=== PATIENT | male | born 1980 | race Caucasian/White ===

== ENCOUNTER 2017-03-03 09:41 | Emergency (ER) | payer OTHER ==
[2017-03-03 09:48] VITALS: RESP 18
--- NOTE | 2017-03-03 10:51 | ED ---
General Adult HPI - General Chief complaint: Dental/Oral Stated complaint: Dental Pain Time Seen by Provider: 03/03/17 10:20 Source: patient, RN notes reviewed Mode of arrival: ambulatory Limitations: no limitations - History of Present Illness Initial comments: Chief complaint history of present illness is a 36-year-old male with a complaint of dental infection. The patient reports these had very poor dentition with multiple fractured teeth and dental problems for many years. Sunday he is trying to see a dentist. The past several days developed swelling to the right side of his face. Denies significant pain. No fever. Denies ALLERGIES. - Related Data Previous Rx's Medication Instructions Recorded Amoxicillin/Potassium Clav 1 each PO Q12HR #20 tab 03/03/17 [Augmentin 875-125 Tablet] Hydrocodone/Acetaminophen [O'Brien 1 each PO Q6HR PRN #10 tab 03/03/17 5-325] Ibuprofen [Motrin] 600 mg PO Q6HR PRN #20 tab 03/03/17 Allergies Allergy/AdvReac Type Severity Reaction Status Date / Time No Known Allergies Allergy Verified 03/03/17 09:48 Review of Systems ROS Statement: Those systems with pertinent positive or pertinent negative responses have been documented in the HPI. Review of systems no headache no visual acuity changes he has discomfort to the right side of his jaw was able to open and close. No neck pain no chest pain shortness breath GI/ problems denies any neuro deficits. All systems are reviewed. Past medical problems none. Denies any surgeries. Family history no cancers. Patient denies any ALLERGIES. He does smoke strongly encouraged to stop he does drink alcohol. ROS Other: All systems not noted in ROS Statement are negative. Past Medical History Past Medical History: No Reported History History of Any Multi-Drug Resistant Organisms: None Reported Past Surgical History: No Surgical Hx Reported Past Psychological History: No Psychological Hx Reported Smoking Status: Current every day smoker Past Alcohol Use History: Occasional Past Drug Use History: None Reported General Exam - General Exam Comments Initial Comments: General: The patient is awake and alert, he because of swelling to his right jaw and cheek. Ongoing freeze reports 1 day. Chronically poor dentition. Vital signs temperature 98.1 pulse 100 respiratory rate 18 pulse ox 95% on room air. Blood pressure 157/72 Eye: Pupils are equal, t, extra-ocular movements are intact; there is normal conjunctiva bilaterally. No signs of icterus. Ears, nose, mouth and throat: Swollen right side of his face including his lip. Denies taking any medications that may have caused angioedema or ALLERGIC reaction. Does have very poor dentition with multiple fractured teeth down the gumline. He states he be seen a dentist or trying to get into one on Sunday. Neck: Neck is supple no significant lymphadenopathy.. Cardiovascular: There is a regular rate and rhythm. No murmur, rub or gallop is appreciated. Respiratory: Lungs are clear to auscultation, respirations are non-labored, breath sounds are equal. No wheezes, stridor, rales, or rhonchi. Gastrointestinal: Abdomen nontender to palpation no complaints of nausea vomiting or diarrhea. No complaint of any neuro deficits. Limitations: no limitations Course Vital Signs 03/03/17 09:43 Temperature 98.1 F Pulse Rate 100 Respiratory 18 Rate Blood Pressure 157/72 O2 Sat by Pulse 95 Oximetry Medical Decision Making - Medical Decision Making Medical decision-making. The patient strongly advised follow-up with dentist as soon as possible. We placed on antibiotics and not showing improvement in the next 24-48 hours to return emergency room if unable to see a dentist or family physician. He'll be placed on antibiotics and analgesics. Disposition Clinical Impression: Dental abscess, Dental caries Disposition: HOME SELF-CARE Condition: Fair Instructions: Dental Abscess (ED), Dental Caries (ED), Toothache (ED) Additional Instructions: Call follow up with a family physician or dentist as soon as possible for follow -up or return emergency room if not improving over the next 24-48 hours. You may need to be hospitalized with IV antibiotics. Take medications as directed Prescriptions: Amoxicillin/Potassium Clav [Augmentin 875-125 Tablet] 1 each PO Q12HR #20 tab Hydrocodone/Acetaminophen [O'Brien 5-325] 1 each PO Q6HR PRN #10 tab PRN Reason: Pain Ibuprofen [Motrin] 600 mg PO Q6HR PRN #20 tab PRN Reason: Pain Referrals: None,Stated [Primary Care Provider] - 1-2 days Time of Disposition: 10:51
[2017-03-03 11:17] VITALS: BP 142/70; PULSE 96; TEMP 98.3
== END 2017-03-03 11:17 | disposition home or self-care (01) ==
LOC: EC 09:41
DX: K04.7 Periapical abscess without sinus (principal); K02.9 Dental caries, unspecified; F17.200 Nicotine dependence, unspecified, uncomplicated
CPT/HCPCS: 99282

== ENCOUNTER 2017-09-29 09:47 | Emergency (ER) | payer OTHER ==
--- NOTE | 2017-09-29 11:52 | ED ---
Overdose HPI - General Chief Complaint: Overdose Stated Complaint: Overdose Time Seen by Provider: 09/29/17 10:05 Source: patient, EMS Mode of arrival: EMS Limitations: no limitations - History of Present Illness Initial Comments: 37-year-old male presented for evaluation of accidental heroin overdose. He states that a friend of his recently came into a lot of money and had bought some heroin. He used a week ago last night and then today but states prior to that he hadn't used for the last 6 months. He states that he was only trying to have a good time and that this was not an intentional or deliberate attempt on his life. He was at his ex-girlfriend's house when he used and she was the one who called EMS. MS provided 2 mg of Narcan IM with improvement in symptoms. Patient states that since having the Narcan he has a runny nose and is feeling congested however is feeling well. States he's had Narcan in the past and has had congestion and rhinorrhea however has had no other complications. - Related Data Home Medications Medication Instructions Recorded Confirmed No Known Home Medications [No 09/29/17 09/29/17 Known Home Medications] Allergies Allergy/AdvReac Type Severity Reaction Status Date / Time No Known Allergies Allergy Verified 09/29/17 09:49 Review of Systems ROS Statement: Those systems with pertinent positive or pertinent negative responses have been documented in the HPI. ROS Other: All systems not noted in ROS Statement are negative. Constitutional: Denies: fever, chills Eyes: Denies: eye pain, eye discharge, vision change ENT: Reports: congestion. Denies: ear pain, throat pain Respiratory: Denies: cough, dyspnea Cardiovascular: Denies: chest pain, palpitations Endocrine: Denies: fatigue, polydipsia Gastrointestinal: Denies: abdominal pain, nausea, vomiting Genitourinary: Denies: urgency, dysuria Musculoskeletal: Denies: back pain, arthralgia, myalgia Skin: Denies: rash, lesions Neurological: Denies: headache, weakness Psychiatric: Denies: anxiety, depression Hematological/Lymphatic: Denies: easy bleeding, easy bruising Past Medical History Past Medical History: No Reported History History of Any Multi-Drug Resistant Organisms: None Reported Past Surgical History: No Surgical Hx Reported Past Psychological History: No Psychological Hx Reported Smoking Status: Current every day smoker Past Alcohol Use History: Occasional Past Drug Use History: Heroin General Exam Limitations: no limitations General appearance: alert, in no apparent distress Head exam: Present: atraumatic, normocephalic Eye exam: Present: normal appearance, PERRL, EOMI ENT exam: Present: normal oropharynx, mucous membranes moist, other (sounds congested/rhinorrhea). Absent: normal exam, mucous membranes dry Neck exam: Present: normal inspection. Absent: tenderness Respiratory exam: Present: normal lung sounds bilaterally. Absent: respiratory distress, wheezes, rales, rhonchi, stridor, chest wall tenderness Cardiovascular Exam: Present: regular rate, normal rhythm GI/Abdominal exam: Present: soft. Absent: distended, tenderness, guarding, rebound, rigid Rectal exam: Present: deferred Extremities exam: Present: normal inspection, full ROM Back exam: Present: normal inspection, full ROM Neurological exam: Present: alert, oriented X3 Psychiatric exam: Present: normal affect, normal mood. Absent: depressed, agitated Skin exam: Present: warm, dry, intact Course Vital Signs 09/29/17 09/29/17 09/29/17 09:49 12:15 12:53 Temperature 98.4 F 98.3 F 98.2 F Pulse Rate 69 61 66 Respiratory 16 18 16 Rate Blood Pressure 130/81 118/69 120/68 O2 Sat by Pulse 94 L 95 99 Oximetry Medical Decision Making - Medical Decision Making 37-year-old male presenting via EMS for accidental heroin overdose. Received 2 mg Narcan IM with improvement in mental status exam side effect of rhinorrhea and congestion. On physical examination the patient appears be in no apparent distress vital signs are stable. Lungs are clear to auscultation bilaterally and the patient has rhinorrhea and congestion however remainder physical exam is benign. Given that the patient has normal oxygen saturation and is in no respiratory distress. We'll observe in the ED. Patient observed and had no complications and consistent improvement in state. At this time the patient is stable for discharge home. He was instructed and educated on the abuse of heroin and advised to seek counseling and assistance in stopping. Further advised to return to this facility if symptoms should worsen or persist. The patient acknowledged an understanding of all information provided and agreed with this plan of care. Disposition Clinical Impression: Accidental heroin overdose, Overdose of nonsteroidal anti-inflammatory drug ( NSAID) Disposition: HOME SELF-CARE Condition: Stable Instructions: Narcotic Abuse (ED) Is patient prescribed a controlled substance at d/c from ED?: No Referrals: Leticia Sylvester MD [STAFF PHYSICIAN] - 1-2 days Time of Disposition: 12:31
[2017-09-29 12:55] VITALS: BP 120/68; PULSE 66; RESP 16; TEMP 98.2
== END 2017-09-29 12:53 | disposition home or self-care (01) ==
LOC: EC 09:47
DX: T40.1X1A Poisoning by heroin, accidental (unintentional), initial encounter (principal); T39.391A Poisoning by other nonsteroidal anti-inflammatory drugs [NSAID], accidental (unintentional), initial encounter; F17.200 Nicotine dependence, unspecified, uncomplicated; Y92.002 Bathroom of unspecified non-institutional (private) residence as the place of occurrence of the external cause
CPT/HCPCS: 99284

== ENCOUNTER 2017-10-12 20:56 | Observation (INO) | payer OTHER ==
[2017-10-12] MEDS ORDERED: IPRATROPIUM-ALBUTEROL 3 ML NEB INHALATION STA (21:28)
[2017-10-12] MEDS ORDERED: methylPREDNISolone SOD SUCCI 125 MG/2 ML VIAL IV STA (21:29)
[2017-10-12] MEDS ORDERED: DEXAMETHASONE SOD PHOSPHATE 10 MG/ML 1 ML VIAL IV STA (21:31)
[2017-10-12] MEDS ORDERED: SODIUM CHLORIDE 0.9% 1,000 ML IV STA (21:32)
--- NOTE | 2017-10-12 21:51 | ED ---
General Adult HPI - General Source: patient, RN notes reviewed Mode of arrival: ambulatory Limitations: no limitations <Xavier Davila - Last Filed: 10/12/17 22:46> <Walt Dunlap - Last Filed: 10/13/17 00:19> - General Chief complaint: Dental/Oral Stated complaint: Dental Infection Time Seen by Provider: 10/12/17 21:11 - History of Present Illness Initial comments: Patient is 37-year-old male presented to the emergency room today with chief complaint of dental pain. Patient states that his noticed some swelling to the right side of his face. He does admit that he has poor dental hygiene. He states that he's having some dental pain to the right lower aspect. Patient states she's had swelling in the past with a dental abscess and believes this may be the same. Patient states is currently not on any antibiotics. He states swelling greatly increased from last night or this morning. He states he has not taken any different medications. Patient does admit to being a daily smoker. He denies any increased shortness of breath. Patient denies any other complaints or symptoms at this time. Patient denies any recent fever, chills, shortness of breath, chest pain, back pain, abdominal pain, nausea or vomiting, numbness or tingling, headaches or visual changes, or any other complaints. (Xavier Davila) - Related Data Home Medications Medication Instructions Recorded Confirmed Ibuprofen [Motrin Ib] 400 mg PO QID PRN 10/12/17 10/12/17 Allergies Allergy/AdvReac Type Severity Reaction Status Date / Time No Known Allergies Allergy Verified 10/12/17 21:20 Review of Systems ROS Other: All systems not noted in ROS Statement are negative. <Xavier Davila - Last Filed: 10/12/17 22:46> ROS Other: All systems not noted in ROS Statement are negative. <Walt Dunlap - Last Filed: 10/13/17 00:19> ROS Statement: Those systems with pertinent positive or pertinent negative responses have been documented in the HPI. Past Medical History Past Medical History: No Reported History History of Any Multi-Drug Resistant Organisms: None Reported Past Surgical History: No Surgical Hx Reported Past Psychological History: No Psychological Hx Reported Smoking Status: Current every day smoker Past Alcohol Use History: Occasional Past Drug Use History: None Reported <Xavier Davila - Last Filed: 10/12/17 22:46> General Exam Limitations: no limitations <Xavier Davila - Last Filed: 10/12/17 22:46> <Walt Dunlap - Last Filed: 10/13/17 00:19> - General Exam Comments Initial Comments: General: The patient is awake and alert, in no distress, and does not appear acutely ill. Eye: Pupils are equal, round and reactive to light, extra-ocular movements are intact. No nystagmus. There is normal conjunctiva bilaterally. No signs of icterus. Ears, nose, mouth and throat: There are moist mucous membranes and no oral lesions. Moderate swelling to the right side of the face above the jaw line. Patient has poor dental hygiene with multiple caries. Patient does have tenderness of the right side lower jaw on palpation to the gumline. There is no abscesses in this area. Patient does have some moderate swelling to the right side mild tenderness. Fluctuant area. Uvula midline. Patient swallows without any difficulty. Neck: The neck is supple, there is no tenderness or JVD. Cardiovascular: There is a regular rate and rhythm. No murmur, rub or gallop is appreciated. Respiratory: Lungs are clear to auscultation, respirations are non-labored, breath sounds are equal. No wheezes, stridor, rales, or rhonchi. Musculoskeletal: Normal ROM, no tenderness. Strength 5/5. Sensation intact. Neurological: A&O x 3. CN II-XII intact, There are no obvious motor or sensory deficits. Coordination appears grossly intact. Speech is normal. Skin: Skin is warm and dry and no rashes or lesions are noted. Psychiatric: Cooperative, appropriate mood & affect, normal judgment. (Xavier Davila) Vital Signs 10/12/17 10/12/17 10/12/17 20:58 21:40 21:45 Temperature 97.7 F Pulse Rate 59 L 60 64 Respiratory 20 Rate Blood Pressure 132/77 O2 Sat by Pulse 95 Oximetry 10/12/17 23:08 Temperature Pulse Rate 50 L Respiratory 18 Rate Blood Pressure 123/67 O2 Sat by Pulse 96 Oximetry Medical Decision Making - Lab Data Result diagrams: 10/12/17 21:30 10/12/17 21:30 <Xavier Davila - Last Filed: 10/12/17 22:46> - Lab Data Result diagrams: 10/12/17 21:30 10/12/17 21:30 <Walt Dunlap - Last Filed: 10/13/17 00:19> - Medical Decision Making 37-year-old male with significant facial swelling, likely cellulitis and dental abscess. Patient does have a normal white blood cell count, however his CRP is elevated consistent with infectious process. CT is obtained given significant swelling and concern for deep space infection. This does show swelling of the soft tissue anterior to the mandible and maxilla. No deep space infection, there is no trismus. No tongue swelling or posterior oropharyngeal swelling on exam. Patient is started on IV antibiotics. Due to the significant swelling he will be placed in observation for IV antibiotics and IV steroids. Case discussed with Dr. Swanson,who will accept admission. (Walt Dunlap) - Lab Data Lab Results 10/12/17 10/12/17 Range/Units 21:30 21:30 WBC 5.7 (3.8-10.6) k/uL RBC 5.17 (4.30-5.90) m/uL Hgb 15.7 (13.0-17.5) gm/dL Hct 46.1 (39.0-53.0) % MCV 89.3 (80.0-100.0) fL MCH 30.4 (25.0-35.0) pg MCHC 34.1 (31.0-37.0) g/dL RDW 12.7 (11.5-15.5) % Plt Count 179 (150-450) k/uL Neutrophils % 49 % Lymphocytes % 35 % Monocytes % 6 % Eosinophils % 7 % Basophils % 0 % Neutrophils # 2.8 (1.3-7.7) k/uL Lymphocytes # 2.0 (1.0-4.8) k/uL Monocytes # 0.4 (0-1.0) k/uL Eosinophils # 0.4 (0-0.7) k/uL Basophils # 0.0 (0-0.2) k/uL Sodium 139 (137-145) mmol/L Potassium 4.8 (3.5-5.1) mmol/L Chloride 104 (98-107) mmol/L Carbon Dioxide 24 (22-30) mmol/L Anion Gap 11 mmol/L BUN 19 (9-20) mg/dL Creatinine 0.90 (0.66-1.25) mg/dL Est GFR (CKD-EPI)AfAm >90 (>60 ml/min/1.73 sqM) Est GFR (CKD-EPI)NonAf >90 (>60 ml/min/1.73 sqM) Glucose 95 (74-99) mg/dL Calcium 9.2 (8.4-10.2) mg/dL Total Bilirubin 1.1 (0.2-1.3) mg/dL AST 115 H (17-59) U/L ALT 121 H (21-72) U/L Alkaline Phosphatase 47 (38-126) U/L C-Reactive Protein 26.2 H (<10.0) mg/L Total Protein 7.2 (6.3-8.2) g/dL Albumin 4.0 (3.5-5.0) g/dL Disposition <Xavier Davila - Last Filed: 10/12/17 22:46> Is patient prescribed a controlled substance at d/c from ED?: No Decision to Admit Reason: Admit from EC Decision Date: 10/13/17 Decision Time: 00:19 <Walt Dunlap - Last Filed: 10/13/17 00:19> Clinical Impression: Dental abscess, Facial cellulitis Disposition: ADMITTED IP TO THIS [facility] Condition: Stable Referrals: None,Stated [Primary Care Provider] - 1-2 days
[2017-10-12 22:15] LABS: Basophils % (A) 0 %; Eosinophils # (A) 0.4 k/uL (0-0.7); Eosinophils % (A) 7 %; HCT 46.1 % (39.0-53.0); HGB 15.7 gm/dL (13.0-17.5); Lymphocytes % (A) 35 %; MCH 30.4 pg (25.0-35.0); MCHC 34.1 g/dL (31.0-37.0); MCV 89.3 fL (80.0-100.0); Mean Platelet Volume 7.2; Monocytes # (A) 0.4 k/uL (0-1.0); Monocytes % (A) 6 %; Neutrophils # (A) 2.8 k/uL (1.3-7.7); Neutrophils % (A) 49 %; Platelet Count 179 k/uL (150-450); RBC 5.17 m/uL (4.30-5.90); RDW 12.7 % (11.5-15.5); WBC 5.7 k/uL (3.8-10.6)
--- NOTE | 2017-10-12 22:23 | CT ---
EXAMINATION TYPE: CT soft tissue neck w con DATE OF EXAM: 10/12/2017 10:13 PM COMPARISON: NONE HISTORY: Swelling to mouth and lips. CT DLP: 427.9 mGycm Automated exposure control for dose reduction was used. CONTRAST: CT scan of the neck is performed following with IV Contrast, patient injected with 100 mL of Isovue 3 00. Axial images are obtained, coronal and sagittal reformatted images are reviewed. FINDINGS: There is normal ranching pattern of the great vessels on the aortic arch. Thyroid gland is symmetric. There is normal contrast opacification of carotid arteries and jugular veins. Vertebral arteries are unremarkable. Epiglottis appears normal. Subglottic trachea appears normal. Prevertebral soft tissue s are not enlarged. There is no evidence of pharyngeal mass. The tonsils appear within normal limits. There is subcutaneous edema anterior to the mandible and the maxilla. The submandibular salivary gla nds are symmetric. The parotid glands are symmetric. The tongue is prominent. There are anterior tria ngle cervical lymph nodes that measure up to 1 cm. IMPRESSION: Symmetric facial soft tissue swelling anterior to the mandible and maxilla. Minimal maxi llary sinusitis noted. Possible lingual edema.
[2017-10-12 22:32] LABS: ALT 121 U/L (21-72); AST 115 U/L (17-59); Alkaline Phosphatase 47 U/L (38-126); Anion Gap 11 mmol/L; Blood Urea Nitrogen 19 mg/dL (9-20); C Reactive Protein 26.2 mg/L (<10.0); Calcium 9.2 mg/dL (8.4-10.2); Carbon Dioxide 24 mmol/L (22-30); Chloride 104 mmol/L (98-107); Glucose 95 mg/dL (74-99); Potassium 4.8 mmol/L (3.5-5.1); Sodium 139 mmol/L (137-145); Total Bilirubin 1.1 mg/dL (0.2-1.3); Total Protein 7.2 g/dL (6.3-8.2)
[2017-10-12] MEDS ORDERED: diphenhydrAMINE 50 MG/ML 1 ML VIAL IVP STA (22:44)
[2017-10-12] MEDS ORDERED: FAMOTIDINE 20 MG/2 ML VIAL IV STA (22:45)
[2017-10-12] MEDS ORDERED: CLINDAMYCIN 600 MG in DEXTROSE 5% IN WATER 50 ML IVPB STA ×2 (22:45)
[2017-10-13] MEDS ORDERED: ACETAMINOPHEN TAB 325 MG TAB PO PRN (00:16)
[2017-10-13] MEDS ORDERED: NALOXONE 0.4 MG/ML 1 ML VIAL IV PRN (00:16)
[2017-10-13] MEDS ORDERED: KETOROLAC 30 MG/ML 1 ML VIAL IVP PRN (00:16)
[2017-10-13 01:41] VITALS: PULSE 44; RESP 16
[2017-10-13] MEDS: DEXAMETHASONE SOD PHOSPHATE 4 MG/ML 1 ML VIAL IV SCH ×2 (05:23→11:52)
--- NOTE | 2017-10-13 06:50 | P.HPIM ---
History of Present Illness H&P Date: 10/13/17 Chief Complaint: Facial swelling 37-year-old male with no significant past medical history presented to the hospital due to facial swelling. He reports that night he noticed some pain in his right lower molars and then next day in the morning on Sunday while at work he noticed facial swelling he reports that the pain is throbbing in his right lower jaw but denies any fevers or chills denies any nausea or vomiting. Continues to be able to open his mouth but kind of hurts. He denies any tongue swelling or changes in his voice. He denies any trouble breathing he is able to manage his own saliva and drink water liquids. However he was concerned regarding dental abscess as this happened before he recognizes that he has poor dental hygiene and decided to come to the hospital Sunday night for further care. CAT scan the soft tissue done in the ED showed swelling out to the mandible and maxilla with possible lingual edema. Patient admitted under observation to receive IV antibiotics and to monitor the progression of swelling Otherwise patient denies any fevers or chills denies any nausea vomiting denies any abdominal pain chest pain or trouble breathing he denies any changes in his bowel habits or urinary habits he denies any GI bleeding he denies any changes in his hearing or vision he denies any focal neurologic deficits Review of Systems Pertinent positives as noted in HPI. All other systems were reviewed and are negative Past Medical History Past Medical History: No Reported History History of Any Multi-Drug Resistant Organisms: None Reported Past Surgical History: No Surgical Hx Reported Past Anesthesia/Blood Transfusion Reactions: No Reported Reaction Smoking Status: Current every day smoker - Past Family History Mother Family Medical History: No Reported History Father Family Medical History: No Reported History Sister(s) Family Medical History: No Reported History Medications and Allergies Home Medications Medication Instructions Recorded Confirmed Type Ibuprofen [Motrin Ib] 400 mg PO QID PRN 10/12/17 10/13/17 History Allergies Allergy/AdvReac Type Severity Reaction Status Date / Time No Known Allergies Allergy Verified 10/13/17 01:16 Physical Exam Vitals: Vital Signs Temp Pulse Pulse Resp BP BP Pulse Ox 10/13/17 01:40 97.6 F 44 L 16 98/62 92 L 10/13/17 01:17 18 10/13/17 00:42 98.0 F 10/13/17 00:34 45 L 18 102/71 95 10/12/17 23:08 50 L 18 123/67 96 10/12/17 21:45 64 10/12/17 21:40 60 10/12/17 20:58 97.7 F 59 L 20 132/77 95 Intake and Output 10/12/17 10/12/17 10/13/17 14:59 22:59 06:59 Other: Voiding Method Toilet # Voids 1 Weight 104.326 kg Constitutional: No acute distress, conversant, pleasant Eyes: Anicteric sclerae, moist conjunctiva, no lid-lag Pupils equal round reactive to light ENMT: NC/AT Patient has noticeable swelling of his lower aspect of the face more on the right than the left of the lower jaw. With tenderness and discomfort to palpation, patient able to open his mouth but limited, tongue is midline uvula is midline no swelling of the soft palate or noticeable swelling of the pharynx. There is no drainage but there is very poor dental hygiene . Patient voice is not muffled patient is able to swallow and manages himself. Neck: Supple, FROM, no masses, or JVD No carotid bruits No thyromegaly Lungs: Clear to auscultation Clear to percussion Normal respiratory effort, no accessory muscle use Cardiovascular: Heart regular in rate and rhythm, No murmurs, gallops, or rubs No peripheral edema Abdominal: Soft Nontender, no guarding, rebound or rigidity Abdomen moving with respiration Normoactive bowel sounds No hepatomegaly, No splenomegaly No palpable mass No abdominal wall hernia noted Skin: Normal temperature, tone, texture, turgor No induration No subcutaneous nodules No rash, lesions No ulcers Extremities: No digital cyanosis No clubbing Pedal pulses intact and symmetrical Radial pulses intact and symmetrical No calf tenderness Psychiatric: Alert and oriented to person, place and time Appropriate affect fair judgment Neuro Muscles Strength 5/5 in all 4 extremities Sensation to light touch grossly present throughout Cranial nerves II-XII grossly intact No focal sensory deficits Lymphatics: Palpable lymph nodes right submental no palpable supraclavicular , or inguinal lymph nodes Results CBC & Chem 7: 10/12/17 21:30 10/12/17 21:30 Labs: Abnormal Lab Results - Last 24 Hours (Table) 10/12/17 Range/Units 21:30 AST 115 H (17-59) U/L ALT 121 H (21-72) U/L C-Reactive Protein 26.2 H (<10.0) mg/L Thrombosis Risk Factor Assmnt - Choose All That Apply Any of the Below Risk Factors Present?: No Other Risk Factors: No Other congenital or acquired thrombophilia - If yes, enter type in comment: No Thrombosis Risk Factor Assessment Level: Very Low Risk Assessment and Plan Assessment: 37-year-old male with no significant past medical history admitted under observation with expected length of stay less than 48 hours due to facial swelling from suspected right lower molar dental abscess. Patient will be monitored for progression of the swelling and for any compromise of his airways patient currently receiving IV antibiotics Plan: #Right facial swelling secondary to right lower molar dental abscess Patient started on IV antibiotics Pain control with NSAIDs Liquid diet as tolerated Patient to see a dentist as an outpatient Monitor for any airway compromise #Tobacco smoking Patient counseled to quit smoking Nicotine replacement therapy offered #DVT prophylaxis Patient is ambulatory low risk Surrogate decision-maker: Patient's mother Vanesa CODE STATUS: Full code Discussed with: Patient, ER, RN Anticipated discharge:< [address]: Home A total of 50 minutes was spent on the care of this complex patient more than 50% of the time was spent in counseling and care coordination.
[2017-10-13] MEDS ORDERED: CLINDAMYCIN 600 MG in DEXTROSE 5% IN WATER 50 ML IVPB SCH ×2 (08:00)
[2017-10-13 08:46] VITALS: BP 98/60; TEMP 97.5
[2017-10-13] MEDS ORDERED: NICOTINE 14MG/24HR PATCH TRANSDERM SCH (09:00)
--- NOTE | 2017-10-13 13:47 | P.DS ---
Providers Date of admission: 10/13/17 00:16 Expected date of discharge: 10/13/17 Attending physician: Sapna Swanson MD Primary care physician: Stated None Hospital Course: 37-year-old male with no significant past medical history presented to the hospital due to facial swelling. He reported that night he noticed some pain in his right lower molars and then next day in the morning on Sunday while at work he noticed facial swelling, he reported that the pain is throbbing in his right lower jaw but denies any fevers or chills, no nausea or vomiting. No chest pain or sob. Patient continued to be able to open his mouth but was having pain with that. He denied any tongue swelling or changes in his voice. He denied any trouble breathing. CAT scan the soft tissue done in the ED showed swelling out to the mandible and maxilla with possible lingual edema. Patient was admitted to receive IV antibiotics and to monitor the progression of swelling. Evaluation in the emergency department revealed normal vital signs, patient was started on clindamycin IV. The next morning when I saw him he was doing very well. Examination of the throat did not reveal any airway compromise. The swelling has gone down. He is able to swallow ok. No shortness of breath. Will be discharged home in stable condition on po clindamycin. Patient is aware that he needs to call a oral surgeon in order to have the infected tooth out. Discharge diagnoses Dental abscess Patient Condition at Discharge: Stable Plan - Discharge Summary Discharge Rx Participant: No New Discharge Prescriptions: New Acetaminophen Tab [Tylenol] 650 mg PO Q6HR PRN tab PRN Reason: Mild Pain Or Fever > 100.5 Clindamycin [Cleocin] 450 mg PO Q6H #30 capsule Continue Ibuprofen [Motrin Ib] 400 mg PO QID PRN PRN Reason: Pain Discharge Medication List Ibuprofen [Motrin Ib] 400 mg PO QID PRN 10/12/17 [History] Acetaminophen Tab [Tylenol] 650 mg PO Q6HR PRN tab 10/13/17 [Rx] Clindamycin [Cleocin] 450 mg PO Q6H #30 capsule 10/13/17 [Rx] Follow up Appointment(s)/Referral(s): None,Stated [Primary Care Provider] - 1-2 days
== END 2017-10-13 13:55 | disposition home or self-care (01) ==
LOC: EC 20:56 → 3OBS 10-13 00:16
PROVIDERS: ADMIT Internal Medicine; ATTEND Internal Medicine
DX: K04.7 Periapical abscess without sinus (principal); F17.200 Nicotine dependence, unspecified, uncomplicated
CPT/HCPCS: 99284 ×2; 96365 ×2; 96375 ×5; 96361 ×2; 96366; 96376; 36415; 94640; 80053; 85025; 86140; 87040; 70491; G0378; S4990; J1200; J1100 ×2; J1885; Q9967

== ENCOUNTER 2017-11-19 11:01 | Emergency (ER) | payer OTHER ==
[2017-11-19 11:07] VITALS: BP 118/75; PULSE 76; RESP 20; TEMP 98.2
--- NOTE | 2017-11-19 12:37 | ED ---
General Adult HPI - General Chief complaint: ENT Stated complaint: Ear pain Source: patient, RN notes reviewed Mode of arrival: ambulatory Limitations: no limitations - History of Present Illness Initial comments: This a 37-year-old male who comes in complaining of open sores on both of his ears. Patient states it's been ongoing for a few days now. Patient states he has multiple sores on his chest and arms he states it's from work. Patient states that he is not taking anything or using any drugs. But the sores are and only place that he can reach. Patient denies any fever chills. Patient denies any chest pain difficulty breathing shortness of breath. Patient denies any abdominal pain. Patient states he will not stay he wants to try outpatient antibiotics. - Related Data Home Medications Medication Instructions Recorded Confirmed Ibuprofen [Motrin Ib] 400 mg PO QID PRN 10/12/17 10/13/17 Previous Rx's Medication Instructions Recorded Acetaminophen Tab [Tylenol] 650 mg PO Q6HR PRN tab 10/13/17 Clindamycin [Cleocin] 450 mg PO Q6H #30 capsule 10/13/17 Cephalexin [Keflex] 500 mg PO Q6HR #28 cap 11/19/17 Mupirocin 2% Oint [Bactroban 2% 1 applic TOPICAL TID 30 Days 11/19/17 Oint] Sulfamethox-Tmp 800-160Mg [Bactrim 1 each PO Q12HR #28 tab 11/19/17 DS 800-160 mg] Allergies Allergy/AdvReac Type Severity Reaction Status Date / Time No Known Allergies Allergy Verified 11/19/17 11:07 Review of Systems ROS Statement: Those systems with pertinent positive or pertinent negative responses have been documented in the HPI. ROS Other: All systems not noted in ROS Statement are negative. Past Medical History Past Medical History: No Reported History History of Any Multi-Drug Resistant Organisms: None Reported Past Surgical History: No Surgical Hx Reported Past Anesthesia/Blood Transfusion Reactions: No Reported Reaction Past Psychological History: No Psychological Hx Reported Smoking Status: Current every day smoker Past Alcohol Use History: None Reported Past Drug Use History: None Reported - Past Family History Mother Family Medical History: No Reported History Father Family Medical History: No Reported History Sister(s) Family Medical History: No Reported History General Exam - General Exam Comments Initial Comments: GENERAL: Patient is well-developed and well-nourished. Patient is nontoxic and well- hydrated and is in mild distress. ENT: Patient has lesions on both his tragus both appear to be infected. There is no obvious abscess. EYES: The sclera were anicteric and conjunctiva were pink and moist. Extraocular movements were intact and pupils were equal round and reactive to light. Eyelids were unremarkable. SKIN: Both tragus appear to be infected there is no obvious abscess formation there is a little bit of redness around the open sore on both tragus. Right is worse than the left. NEUROLOGIC: Patient is alert and oriented x3. Cranial nerves II through XII are grossly intact. Motor and sensory are also intact. Normal speech, volume and content. Symmetrical smile. MUSCULOSKELETAL Normal extremities with adequate strength and full range of motion. LYMPHATICS: No significant lymphadenopathy is noted PSYCHIATRIC: Normal psychiatric evaluation. Limitations: no limitations Course Vital Signs 11/19/17 11:05 Temperature 98.2 F Pulse Rate 76 Respiratory 20 Rate Blood Pressure 118/75 O2 Sat by Pulse 99 Oximetry Medical Decision Making - Medical Decision Making I indicated to the patient that we might want to keep him he said he did not want to stay he just wanted to have antibiotics as an outpatient with some ointment. Disposition Clinical Impression: Infection of ear lobe Disposition: HOME SELF-CARE Instructions: MRSA (Methicillin-Resistant Staphylococcus Aureus) (ED) Prescriptions: Cephalexin [Keflex] 500 mg PO Q6HR #28 cap Mupirocin 2% Oint [Bactroban 2% Oint] 1 applic TOPICAL TID 30 Days Sulfamethox-Tmp 800-160Mg [Bactrim DS 800-160 mg] 1 each PO Q12HR #28 tab Is patient prescribed a controlled substance at d/c from ED?: No Referrals: None,Stated [Primary Care Provider] - 1-2 days Time of Disposition: 12:44
== END 2017-11-19 13:07 | disposition home or self-care (01) ==
LOC: EC 11:01
DX: H60.393 Other infective otitis externa, bilateral (principal); F17.200 Nicotine dependence, unspecified, uncomplicated
CPT/HCPCS: 87070; 87205; 99283